=== PATIENT | male | born 1985 | race Caucasian/White ===

== ENCOUNTER 2019-07-12 10:47 | Emergency (ER) | payer OTHER, MEDICAID, SELFPAY ==
[2019-07-12 10:50] VITALS: BP 136/74; PULSE 66; RESP 18; TEMP 35.9; O2SAT 96; BMI 41.8
[2019-07-12] MEDS: ONDANSETRON 4 MG/2 ML INJ IV (11:30)
[2019-07-12] MEDS: SODIUM CHLORIDE 0.9% 1,000 ML 1000 ML IV (11:30)
--- NOTE | 2019-07-12 11:48 | ED_ITS ---
HPI - Headache <Markus KEAGAN Wallis - Last Filed: 07/12/19 21:59> General Chief Complaint: Headache Stated Complaint: migrane,vomiting Time Seen by Provider: 07/12/19 11:45 Mode of arrival: Ambulatory Limitations: no limitations History of Present Illness HPI Narrative: This is a 33-year-old gentleman, nonsmoker, who presents to ED with migraine headache without fever, chills, unusual rash, photosensitivity. Patient reports he has a long history of migraine headache since age 5 and had tried multiple different medications in the past and is under care of Dr. Patrick Fitzgerald, neurologist and headache specialitst. Patient states actually since coming into ED his headache has improved from 7-4 at this time. Patient has onset of headache 3 days ago with worsening symptoms of headache yesterday. This morning patient had severe nausea and had vomited and was unable to tolerate his routine medications along anti nausea medication. Patient denies speech difficulty, vision changes, weakness to his extremity. Reports his headache is similar to his previous migraine headaches. Patient has multiple medication allergies to headache. Patient stays his migraine headache is frequently caused by barometric changes and he is under some stress. Related Data Home Medications Medication Instructions Recorded Confirmed cholecalciferol (vitamin D3) QWEEK #0 03/27/16 magnesium Q DAY #0 03/27/16 naproxen BID #0 03/27/16 promethazine 25 mg PO QID #0 03/27/16 07/12/19 almotriptan malate 12.5 mg PO PRN PRN MDD 25 mg 07/12/19 07/12/19 buspirone 5 mg PO TID PRN 07/12/19 07/12/19 esomeprazole magnesium [Nexium 40 mg PO DAILY 07/12/19 07/12/19 24HR] lithium carbonate 300 mg PO TID 07/12/19 lurasidone [Latuda] 20 mg PO DAILY 07/12/19 07/12/19 pregabalin 100 mg PO DAILY 07/12/19 pregabalin 150 mg PO DAILY 07/12/19 valbenazine [Ingrezza] 80 mg PO DAILY 07/12/19 07/12/19 Previous Rx's Medication Instructions Recorded ondansetron 4 mg PO Q6-8H PRN #7 tab 07/12/19 Allergies Allergy/AdvReac Type Severity Reaction Status Date / Time cyclobenzaprine Allergy Severe Gastrointestinal Verified 07/12/19 11:29 Upset diphenhydramine Allergy Severe Agitated Verified 07/12/19 11:29 ketorolac [From Toradol] Allergy Severe Agitated Verified 07/12/19 11:29 Penicillins Allergy Severe Anaphylaxis Verified 07/12/19 11:29 prochlorperazine Allergy Severe Agitated Verified 07/12/19 11:29 [From Compazine] Sulfa (Sulfonamide Allergy Severe Nausea Verified 07/12/19 11:29 Antibiotics) trimethoprim Allergy Severe Anaphylaxis Verified 07/12/19 11:29 topiramate Allergy Intermediate Seizure Verified 07/12/19 11:29 alcohol [ALCOHOL] Allergy Mild rash/itchy/ Verified 07/12/19 11:29 hot/SOB carbamazepine Allergy Unknown Verified 07/12/19 11:29 Corticosteroids Allergy Unknown Verified 07/12/19 11:29 (Glucocorticoids) gabapentin Allergy Unknown Verified 07/12/19 11:29 dexamethasone Allergy Verified 07/12/19 11:29 morphine AdvReac Severe Nausea Verified 07/12/19 11:29 sumatriptan [From Imitrex] AdvReac Severe Hypertensio Verified 07/12/19 11:29 n acetaminophen AdvReac Intermediate Nausea Verified 07/12/19 11:29 fentanyl AdvReac Intermediate Gastrointestinal Verified 07/12/19 11:29 Upset baclofen AdvReac Shakiness Verified 07/12/19 11:29 metaxalone AdvReac Agitated Verified 07/12/19 11:29 methocarbamol AdvReac Headache Verified 07/12/19 11:29 steroids Allergy Severe swelling Uncoded 07/12/19 11:01 THC Allergy Intermediate head Uncoded 07/12/19 11:01 spins, N/V Review of Systems <KEAGAN Hightower - Last Filed: 07/12/19 21:59> Review of Systems Narrative: General: Denies fever, chills, fatigue, malaise, sweats. HEENT: Denies sinus pain, ear pain, sore throat, difficulty swallowing, dizziness. Respiratory: Denies dyspnea, cough, wheezing, hemoptysis, sputum. Cardiovascular: Denies chest pain, palpitations, orthopnea, edema. Gastrointestinal: Denies nausea, vomiting, abdominal pain, diarrhea, constipation, melena. : Denies dysuria, frequency, incontinence, hematuria, urinary retention. Musculoskeletal: Denies weakness, joint pain or bony pain. Skin: Denies rash, skin lesions, or other. Neurologic: Reports migraine headache. Headache Denies weakness, numbness, change in speech, confusion, seizures, incoordination. Psychiatric: No concerning psychosocial issues. 12-point review of systems is negative except for those stated above. Patient History <KEAGAN Hightower - Last Filed: 07/12/19 21:59> Medical History (Updated 07/12/19 @ 12:32 by KEAGAN Hightower) Migraine (Acute) Surgical History (Updated 11/30/17 @ 06:09 by Conversion Provider) History of third molar tooth extraction History of tonsillectomy Status post discectomy Status post knee surgery Social History Smoking Status: Former smoker Smoking Status: Former smoker alcohol intake frequency: other Substance Use Type: does not use Exam <KEAGAN Hightower - Last Filed: 07/12/19 21:59> Narrative Exam Narrative: GEN: Alert, oriented x 3, well appearing and nourished, and in no acute distress. Head: Normal cephalic, atraumatic. No scalp or temporal tenderness, palpable mass or rash. EYES: Pupils are equal, round, and reactive to light and accommodation. Extraocular muscles are intact bilaterally. There is no subconjunctival hemorrhage, exudate and sclera non-icteric. ENT: Bilateral auditory canals and tympanic membranes clear. Hearing grossly intact. Nose without bleeding, purulent discharge, septal hematoma or deviation. Turbinate without erythema or swelling. Facial sinuses nontender to palpate. Mucous membrane moist, no mucosal lesion. Throat without erythema, tonsillar hypertrophy or exudate. Uvula in midline, airway patent. Neck: Trachea in midline. No JVD, non-tender without lymphadenopathy. No masses or thyroid megaly. Supple, non-tender and no meningeal signs. CARDIAC: Normal regular rate and rhythm without murmurs, gallops, or rubs. No chest wall tenderness. No peripheral edema, cyanosis or pallor. Capillary refill is less than 2 seconds. No carotid bruits. RESPIRATORY: Lungs are cleat to auscultate bilaterally. No cough, wheezes, rales, or rhonchi. No stridor, respiratory distress, increase work of breathing, or accessary muscle used. ABD: Abdomen soft, nontender and non-distended. No guarding or rebound tenderness to palpate. Bowel sounds are normal in all 4 quadrants. There is no palpable masses or organomegaly. EXT: Full painless ROM of all extremities with no loss of sensation, strength, effusion or edema. SKIN: Warm, dry, normal color for patient. No erythema, lesions or rash. BACK: Nontender without deformity or crepitance. No flank tenderness. NEUROLOGICAL: Alert and oriented to place, time and person. No facial droops, dysphasia. CN II-XII intact. Strength and sensation symmetric and intact throughout. Reflexes 2+ throughout. Cerebellar testing normal. PSYCHIATRIC: Good judgement and reason, without hallucinations, abnormal affect or abnormal behaviors during the examination. Patient is not suicidal. Initial Vital Signs Initial Vital Signs: Vital Signs Temperature 96.6 F L 07/12/19 10:50 Pulse Rate 66 07/12/19 10:50 Respiratory Rate 18 07/12/19 10:50 Blood Pressure 136/74 07/12/19 10:50 Pulse Oximetry 96 07/12/19 10:50 <Didi Clarke DO - Last Filed: 07/13/19 07:23> Initial Vital Signs Initial Vital Signs: Vital Signs Temperature 96.6 F L 07/12/19 10:50 Pulse Rate 66 07/12/19 10:50 Respiratory Rate 18 07/12/19 10:50 Blood Pressure 136/74 07/12/19 10:50 Pulse Oximetry 96 07/12/19 10:50 Scores <KEAGAN Hightower - Last Filed: 07/12/19 21:59> GCS Quinter coma scale eye opening: Spontaneous Quinter coma scale verbal response: Orientated Genia coma scale motor response: Obey commands Quinter coma scale total score: 15 NIH Stroke Scale Level of Conciousness: Alert, keenly responsive Ask month/age: Answers both questions correctly. Open/close eyes, close hand: Performs both tasks correctly Best gaze horizontal: Normal Visual mooney: No visual loss Facial palsy: Normal symetrical movement Left arm drift: No drift for full 10 sec Right arm drift: No drift for full 10 sec Left leg drift: No drift for full 10 sec Right leg drift: No drift for full 10 sec Limb ataxia: Absent Sensory on face/arms/legs: Normal, no sensory loss Best language: No aphasia, normal Dysarthria: Normal Extinction or inattention: No abnormality Total NIH Stroke scale score: 0 Course <KEAGAN Hightower - Last Filed: 07/12/19 21:59> Orders Ordered: Discontinued Medications Sodium Chloride (Normal Saline 0.9%) 1,000 mls @ 1,000 mls/hr IV BOLUS ONE Stop: 07/12/19 12:07 Last Infusion: 07/12/19 12:30 Dose: 0 mls/hr Documented by: Admin: 07/12/19 11:30 Dose: 1,000 mls/hr Documented by: BRISEIDA Ondansetron HCl (Zofran) 4 mg IV NOW ONE Stop: 07/12/19 11:09 Last Admin: 07/12/19 11:30 Dose: 4 mg Documented by: BRISEIDA Vital Signs Vital signs: Vital Signs - 8 hr 07/12/19 10:50 Temperature 96.6 F L Pulse Rate 66 Respiratory Rate 18 Blood Pressure 136/74 Pulse Oximetry 96 <Didi Clarke DO - Last Filed: 07/13/19 07:23> Orders Ordered: Discontinued Medications Sodium Chloride (Normal Saline 0.9%) 1,000 mls @ 1,000 mls/hr IV BOLUS ONE Stop: 07/12/19 12:07 Last Infusion: 07/12/19 12:30 Dose: 0 mls/hr Documented by: Admin: 07/12/19 11:30 Dose: 1,000 mls/hr Documented by: BRISEIDA Ondansetron HCl (Zofran) 4 mg IV NOW ONE Stop: 07/12/19 11:09 Last Admin: 07/12/19 11:30 Dose: 4 mg Documented by: BRISEIDA Vital Signs Vital signs: Vital Signs - 8 hr 07/12/19 10:50 Temperature 96.6 F L Pulse Rate 66 Respiratory Rate 18 Blood Pressure 136/74 Pulse Oximetry 96 MDM - Headache <KEAGAN Hightower - Last Filed: 07/12/19 21:59> Differential Diagnosis Differential diagnosis: Likely migraine, headache and other (Stroke) Medical Records Attestation: I reviewed the patient's medical records. Lab Data Attestation: I reviewed the patient's lab results. Labs: Lab Results 07/12/19 Range/Units 12:30 Urine RBC None seen (0-5/HPF) Urine WBC 0-1/hpf (0-5/HPF) Ur Squamous Epith Cells 1-5 /hpf (0-5/HPF) Urine Bacteria None seen (None) Hyaline Casts 0-1/lpf (None) WBC Casts 0-1/lpf (None) Ur Culture Indicated? Cult not indicated Urine Dip Bedside Urine Glucose Negative Bedside Urine Bilirubin - Negative Bedside Urine Ketone - Negative Urine Specific Mcalister 1.025 Bedside Urine Occult Blood - Negative Bedside Urine pH 6.0 Bedside Urine Protein +/- 15 Bedside Urine Urobilinogen - Negative Bedside Urine Nitrite - Negative Bedside Urine Leukocytes - Negative Esterase MDM Narrative Medical decision making narrative: This is a 33-year-old gentleman who presents to ED with long history of migraine headaches since age 5 without constitutional symptoms or meningeal signs. Patient states she was not able to tolerate his medications due to nausea and vomiting for his headache management and routine medications today. Patient NIHS score was 0 and GCS of 15. Patient reports today's headache feels as his normal migraine headaches. Patient has neuro logist that he follows up for headaches. Patient has multiple medications allergies to treat headache. Patient was treated with IV fluid and IV Zofran for nausea and patient reports his headache has improved and is ready to go home. No lab tests or imaging tests has done today. Vital signs has been stable in ED. Patient discharged to home with Zofran ODT and Return precautions were discussed with the patient and verbalized understanding and agrees with the treatment plan. Work note provided to patient. <Didi Clarke, DO - Last Filed: 07/13/19 07:23> Lab Data Labs: Lab Results 07/12/19 Range/Units 12:30 Urine RBC None seen (0-5/HPF) Urine WBC 0-1/hpf (0-5/HPF) Ur Squamous Epith Cells 1-5 /hpf (0-5/HPF) Urine Bacteria None seen (None) Hyaline Casts 0-1/lpf (None) WBC Casts 0-1/lpf (None) Ur Culture Indicated? Cult not indicated Urine Dip Bedside Urine Glucose Negative Bedside Urine Bilirubin - Negative Bedside Urine Ketone - Negative Urine Specific Mcalister 1.025 Bedside Urine Occult Blood - Negative Bedside Urine pH 6.0 Bedside Urine Protein +/- 15 Bedside Urine Urobilinogen - Negative Bedside Urine Nitrite - Negative Bedside Urine Leukocytes - Negative Esterase Discharge Plan Departure Patient Disposition: Home Clinical Impression: Headache, migraine Qualifiers: Migraine type: unspecified Status migrainosus presence: without status migrainosus Intractability: not intractable Qualified Code(s): G43.909 - Migraine, unspecified, not intractable, without status migrainosus Discharge Date/Time: 07/12/19 13:11 Activity Restrictions/Additional Instructions: You have been diagnosed with [migraine headache. You were hydrated with IV fluid and medicated with Zofran for nausea]. What to do: *Take your medications as directed. You have been prescribed with Zofran for nausea and please use it as needed. This is transmitted to [facility]. *Follow up with your primary care provider/neurologist in 2-3 days, call for an appointment. Let them know you were seen in the ED and that we asked you to be seen in follow up. *Return to ED if you have any new, worsening, or concerning symptoms, such as [chest pain, breathing difficulty, unable to tolerate fluids, weakness to her limbs, speech difficulty, double vision, or any acute concerns]. Prescriptions: New ondansetron 4 mg tablet,disintegrating 4 mg PO Q6-8H PRN (Reason: nausea and vomiting) Qty: 7 RF: 0 No Action promethazine 25 MG tablet 25 mg PO QID Qty: 0 RF: 0 cholecalciferol (vitamin D3) 50,000 UNIT capsule QWEEK Qty: 0 RF: 0 naproxen 250 MG tablet BID Qty: 0 RF: 0 magnesium 200 MG tablet Q DAY Qty: 0 RF: 0 buspirone 5 mg tablet 5 mg PO TID PRN (Reason: Anxiety) RF: 0 almotriptan malate 12.5 mg tablet 12.5 mg PO PRN MDD 25 mg PRN (Reason: Migraine Headache) RF: 0 lithium carbonate 300 mg capsule 300 mg PO TID RF: 0 esomeprazole magnesium [Nexium 24HR] 20 mg capsule,delayed release(DR/EC) 40 mg PO DAILY RF: 0 pregabalin 75 mg capsule 150 mg PO DAILY RF: 0 pregabalin 100 mg capsule 100 mg PO DAILY RF: 0 Latuda 20 mg tablet 20 mg PO DAILY RF: 0 Ingrezza 40 mg capsule 80 mg PO DAILY RF: 0 Referrals: Amilcar Nguyen MD [Non-Staff] - Stand Alone Forms: Work Release Note
[2019-07-12 12:30] VITALS: BP 110/81; PULSE 57; RESP 16; TEMP 36.6; O2SAT 98
[2019-07-12 13:08] LABS: Bacteria Urine None Seen; RBC Urine None Seen (0-5/HPF)
[2019-07-12 13:23] LABS: Culture Indicated Urine Cult Not Indicated; Hyaline Casts Urine 0-1/LPF; Squamous Epithelial Cell Urine 1-5 /HPF (0-5/HPF); WBC Urine 0-1/HPF (0-5/HPF); White Blood Cell Casts Urine 0-1/LPF
== END 2019-07-12 13:11 | disposition home or self-care (01) ==
PROVIDERS: Emergency Provider Nurse Practitioner Family
DX: G43.909 Migraine, unspecified, not intractable, without status migrainosus (principal)
CPT/HCPCS: 81003; 81015; 96361; 96374; 99281; 99284; J2405

== ENCOUNTER 2019-09-06 14:03 | Emergency (ER) | payer OTHER, MEDICAID, SELFPAY ==
--- NOTE | 2019-09-06 14:11 | DI.RAD.S_ITS ---
PROCEDURE: XR CHEST 1V INDICATIONS: chest pain TECHNIQUE: One view of the chest was acquired. COMPARISON: None. FINDINGS: Surgical changes and devices: None. Lungs and pleura: Lungs are clear. No pleural effusions or pneumothorax. Mediastinum: Mediastinal contours appear normal. Heart size is normal. Bones and chest wall: No suspicious bony lesions. Overlying soft tissues appear unremarkable. IMPRESSION: No acute cardiopulmonary process is evident. Dictated by: Huy Liu M.D. on 09/06/2019 at 14:15 Approved by: Huy Liu M.D. on 09/06/2019 at 14:16
[2019-09-06 14:20] VITALS: BP 124/91; PULSE 119; RESP 21; TEMP 36.6; O2SAT 99; BMI 41.3
[2019-09-06 14:42] LABS: Add Manual Diff / Slide Review NO; Basophils Absolute Auto 0 /uL (0-100); Basophils Percent Auto 0.3 % (0-2); Eosinophils Absolute Auto 100 /uL (0-450); Eosinophils Percent Auto 0.8 % (2-4); Hematocrit 41.1 % (41-53); Hemoglobin 14.8 g/dL (13.5-17.5); Lymphocytes Absolute Auto 1900 /uL (1100-4500); Lymphocytes Percent Auto 19.7 % (25-40); Mean Corpuscular HGB Conc 36.1 % (30-36); Mean Corpuscular Hemoglobin 31.7 PG (26-34); Mean Corpuscular Volume 87.7 fL (80-100); Monocytes Absolute Auto 400 /uL (0-900); Monocytes Percent Auto 4.7 % (3-14); Neutrophils Absolute Auto 7200 /uL (1500-7000); Neutrophils Percent Auto 74.5 % (50-75); Platelet Count 288 X10^3/uL (150-400); Red Blood Cell Count 4.68 X10^6/uL (4.5-5.9); Red Cell Distribution Width 14.2 % (11.6-14.8); White Blood Cell Count 9.6 X10^3/uL (4.5-11.0)
[2019-09-06 14:48] LABS: INR 1.1 (0.9-1.3); Prothrombin Time 12.5 SECONDS (10.1-12.7)
[2019-09-06 14:51] LABS: PTT Partial Thromboplastin Tim 27 SECONDS (26.4-36.2)
[2019-09-06 14:53] LABS: Alanine Aminotransferase 20 IU/L (<50); Albumin 4.4 g/dL (3.5-5.0); Albumin Globulin Ratio 1.3 (1.0-2.8); Alkaline Phosphatase 64 U/L (38-126); Aspartate Aminotransferase 21 IU/L (17-59); BUN Creatinine Ratio 9.1 (6-22); Bilirubin Total 0.5 mg/dL (0.2-1.3); Blood Urea Nitrogen 10 mg/dL (9-20); Calcium 9.8 mg/dL (8.4-10.2); Carbon Dioxide 17 mmol/L (22-32); Chloride 112 mmol/L (98-107); Creatine Kinase 104 U/L (55-170); Estimated Glomerular Filt Rate > 60.0 mL/min (>60); Globulin 3.3 g/dL (1.7-4.1); Glucose 129 mg/dL (70-100); HEMOLYSIS < 15 (0-50); Lipase 47 U/L (23-300); Potassium 3.4 mmol/L (3.4-5.1); Sodium 143 mmol/L (137-145); Total Protein 7.7 g/dL (6.3-8.2)
[2019-09-06 15:04] LABS: Troponin I < 0.012 ng/mL (0.01-0.034)
[2019-09-06 15:08] LABS: CKMB % Relative Index 0.7 % (1.5-5.0); Creatine Kinase MB 0.73 ng/mL (<2.37)
[2019-09-06 15:38] VITALS: BP 122/65; PULSE 93; RESP 19; O2SAT 95
--- NOTE | 2019-09-06 16:36 | ED.CHESTPAIN ---
HPI - Chest Pain General Chief Complaint: Chest Pain Stated Complaint: POSSIBLE HEART ATTACK Time Seen by Provider: 09/06/19 16:29 Source: patient Mode of arrival: Ambulatory Limitations: no limitations History of Present Illness HPI narrative: This is a 34-year-old male comes to the emergency department with complaint of feeling like he is having a panic attack. He states that it just has not stopped he states he got a from 05/06 o'clock this morning is continued to have symptoms. He describes as feeling like his heart is compressed, he feels like he can't come down. He feels dizzy when he stands. He states this typical symptoms but usually it is not this prolonged or intense. Patient states no syncope. He has had some nausea but no active vomiting. He did take his Zofran sublingually at home and states that he has been told he has vomiting problems or possibly cyclic vomiting. Patient has had normal urination without any decrease or frequency, dysuria urgency. Normal stools. Patient does take lithium for bipolar, he states that his bipolar symptoms are well controlled at this time. He has had some increased anxiety and took his BuSpar sit for 60 mg total today. He also has a history of chronic migraines and fibromyalgia and states he had an L5-S1 fusion for a lumbar pars defect in the past. Patient denies tobacco or alcohol he does take CBD and took an additional THC with that at 8:30 a.m. trying to help his symptoms and states it seemed to make them worse. Related Data Home Medications Medication Instructions Recorded Confirmed cholecalciferol (vitamin D3) QWEEK #0 03/27/16 magnesium Q DAY #0 03/27/16 naproxen BID #0 03/27/16 promethazine 25 mg PO QID #0 03/27/16 07/12/19 almotriptan malate 12.5 mg PO PRN PRN MDD 25 mg 07/12/19 07/12/19 buspirone 5 mg PO TID PRN 07/12/19 07/12/19 esomeprazole magnesium [Nexium 40 mg PO DAILY 07/12/19 07/12/19 24HR] lithium carbonate 300 mg PO TID 07/12/19 lurasidone [Latuda] 20 mg PO DAILY 07/12/19 07/12/19 pregabalin 100 mg PO DAILY 07/12/19 pregabalin 150 mg PO DAILY 07/12/19 valbenazine [Ingrezza] 80 mg PO DAILY 07/12/19 07/12/19 Previous Rx's Medication Instructions Recorded ondansetron 4 mg PO Q6-8H PRN #7 tab 07/12/19 Allergies Allergy/AdvReac Type Severity Reaction Status Date / Time cyclobenzaprine Allergy Severe Gastrointestinal Verified 07/12/19 11:29 Upset diphenhydramine Allergy Severe Agitated Verified 07/12/19 11:29 ketorolac [From Toradol] Allergy Severe Agitated Verified 07/12/19 11:29 Penicillins Allergy Severe Anaphylaxis Verified 07/12/19 11:29 prochlorperazine Allergy Severe Agitated Verified 07/12/19 11:29 [From Compazine] Sulfa (Sulfonamide Allergy Severe Nausea Verified 07/12/19 11:29 Antibiotics) trimethoprim Allergy Severe Anaphylaxis Verified 07/12/19 11:29 topiramate Allergy Intermediate Seizure Verified 07/12/19 11:29 alcohol [ALCOHOL] Allergy Mild rash/itchy/ Verified 07/12/19 11:29 hot/SOB carbamazepine Allergy Unknown Verified 07/12/19 11:29 Corticosteroids Allergy Unknown Verified 07/12/19 11:29 (Glucocorticoids) gabapentin Allergy Unknown Verified 07/12/19 11:29 dexamethasone Allergy Verified 07/12/19 11:29 morphine AdvReac Severe Nausea Verified 07/12/19 11:29 sumatriptan [From Imitrex] AdvReac Severe Hypertensio Verified 07/12/19 11:29 n acetaminophen AdvReac Intermediate Nausea Verified 07/12/19 11:29 fentanyl AdvReac Intermediate Gastrointestinal Verified 07/12/19 11:29 Upset baclofen AdvReac Shakiness Verified 07/12/19 11:29 metaxalone AdvReac Agitated Verified 07/12/19 11:29 methocarbamol AdvReac Headache Verified 07/12/19 11:29 steroids Allergy Severe swelling Uncoded 07/12/19 11:01 THC Allergy Intermediate head Uncoded 07/12/19 11:01 janey, N/V Review of Systems Review of Systems ROS Unobtainable: All systems reviewed & are unremarkable except as noted in HPI and below Patient History Medical History (Updated 09/07/19 @ 01:42 by Terrance Ruiz DO) Chronic pain syndrome (Inactive) Chronic pain syndrome (03/27/16) Former smoker (03/27/16) History of lumbar fusion (03/27/16) Low back pain (Inactive) Lumbar back pain with radiculopathy affecting left lower extremity (03/27/16) Migraine (Acute) Morbid obesity (03/27/16) Morbid obesity with BMI of 40.0-44.9, adult (Inactive) Tobacco abuse (Inactive) Tobacco abuse counseling (Inactive) Surgical History History of third molar tooth extraction History of tonsillectomy Status post discectomy Status post knee surgery Social History Smoking Status: Former smoker Smoking Status: Former smoker alcohol intake frequency: other Substance Use Type: marijuana Exam Narrative Exam Narrative: GEN: well nourished, well appearing obese male, alert and oriented x 3, patient appears to be in mild distress. HEENT: Atraumatic, pupils are equal round reactive to light, extraocular movements are intact, nares are clear. HEART: Regular rate and rhythm without murmur, clicks, rubs. LUNGS:Lungs clear to auscultation, no wheezes, rales, crackles, chest moves symmetrically ABD:bowel sounds normal, soft, non-tender, no guarding, rebound, rigidity, no masses noted, no hepatosplenomegaly :No CVA tenderness MSCL: Non-tender, no muscle atrophy, muscles strength 5/5 upper and lower extremities, full range of motion. NEURO:CN 2-12 intact, sensation normal Initial Vital Signs Initial Vital Signs: Vital Signs Temperature 97.8 F 09/06/19 14:20 Pulse Rate 119 H 09/06/19 14:20 Respiratory Rate 21 09/06/19 14:20 Blood Pressure 124/91 H 09/06/19 14:20 Pulse Oximetry 99 09/06/19 14:20 Scores GCS Genia coma scale eye opening: Spontaneous [place] coma scale verbal response: Orientated Gen[place] coma scale motor response: Obey commands Genia coma scale total score: 15 Course Orders Ordered: Discontinued Medications Sodium Chloride (Normal Saline 0.9%) 1,000 mls @ 1,000 mls/hr IV BOLUS ONE Stop: 09/06/19 17:59 Last Infusion: 09/06/19 18:35 Dose: 0 mls/hr Documented by: Admin: 09/06/19 17:33 Dose: 1,000 mls/hr Documented by: MICHELLE Lorazepam (Ativan) 1 mg PO NOW ONE Stop: 09/06/19 16:57 Last Admin: 09/06/19 17:33 Dose: 1 mg Documented by: MICHELLE Ondansetron HCl (Zofran) 4 mg IV NOW ONE Stop: 09/06/19 17:08 Last Admin: 09/06/19 17:33 Dose: 4 mg Documented by: MICHELLE Vital Signs Vital signs: Vital Signs - 8 hr 09/06/19 14:20 09/06/19 15:38 Temperature 97.8 F Pulse Rate 119 H 93 H Respiratory Rate 21 19 Blood Pressure 124/91 H Blood Pressure [Left Arm] 122/65 Pulse Oximetry 99 95 MDM - Chest Pain Lab Data Attestation: I reviewed the patient's lab results. Result diagrams: 09/06/19 14:33 09/06/19 14:33 Labs: Lab Results 09/06/19 09/06/19 09/06/19 Range/Units 14:33 14:33 14:33 WBC 9.6 (4.5-11.0) X10^3/uL RBC 4.68 (4.5-5.9) X10^6/uL Hgb 14.8 (13.5-17.5) g/dL Hct 41.1 (41-53) % MCV 87.7 (80-100) fL MCH 31.7 (26-34) PG MCHC 36.1 H (30-36) % RDW 14.2 (11.6-14.8) % Plt Count 288 (150-400) X10^3/uL Neut % (Auto) 74.5 (50-75) % Lymph % (Auto) 19.7 L (25-40) % [place] % (Auto) 4.7 (3-14) % Eos % (Auto) 0.8 L (2-4) % Baso % (Auto) 0.3 (0-2) % Neut # (Auto) 7200 H (7679-8147) /uL Lymph # (Auto) 1900 (2938-4799) /uL [place] # (Auto) 400 (0-900) /uL Eos # (Auto) 100 (0-450) /uL Baso # (Auto) 0 (0-100) /uL PT 12.5 (10.1-12.7) SECONDS INR 1.1 (0.9-1.3) APTT 27 (26.4-36.2) SECONDS D-Dimer (<230) ng/mL Sodium 143 (137-145) mmol/L Potassium 3.4 (3.4-5.1) mmol/L Chloride 112 H (98-107) mmol/L Carbon Dioxide 17 L (22-32) mmol/L BUN 10 (9-20) mg/dL Creatinine 1.10 (0.66-1.25) mg/dL Estimated GFR > 60.0 (>60) mL/min BUN/Creatinine Ratio 9.1 (6-22) Glucose 129 H (70-100) mg/dL Calcium 9.8 (8.4-10.2) mg/dL Total Bilirubin 0.5 (0.2-1.3) mg/dL AST 21 (17-59) IU/L ALT 20 (<50) IU/L Alkaline Phosphatase 64 (38-126) U/L Total Creatine Kinase 104 (55-170) U/L CK-MB (CK-2) 0.73 (<2.37) ng/mL CK-MB (CK-2) Rel Index 0.7 L (1.5-5.0) % Troponin I < 0.012 (0.01-0.034) ng/mL Total Protein 7.7 (6.3-8.2) g/dL Albumin 4.4 (3.5-5.0) g/dL Globulin 3.3 (1.7-4.1) g/dL Albumin/Globulin Ratio 1.3 (1.0-2.8) Lipase 47 (23-300) U/L U Opiates 300ng/mL cut (Negative) Ur Oxycodone Screen (Negative) Urine Methadone Screen (Negative) Ur Barbiturates Screen (Negative) U Tricyclic Antidepress (Negative) Ur Phencyclidine Scrn (Negative) Ur Amphetamines Screen (Negative) U Methamphetamines Scrn (Negative) Ur MDMA Scrn (Ecstasy) (Negative) U Benzodiazepines Scrn (Negative) [place] (0.6-1.2) mmol/L Urine Cocaine Screen (Negative) U Marijuana (THC) Screen (Negative) 09/06/19 09/06/19 09/06/19 Range/Units 14:33 14:33 17:01 WBC (4.5-11.0) X10^3/uL RBC (4.5-5.9) X10^6/uL Hgb (13.5-17.5) g/dL Hct (41-53) % MCV (80-100) fL MCH (26-34) PG MCHC (30-36) % RDW (11.6-14.8) % Plt Count (150-400) X10^3/uL Neut % (Auto) (50-75) % Lymph % (Auto) (25-40) % [place] % (Auto) (3-14) % Eos % (Auto) (2-4) % Baso % (Auto) (0-2) % Neut # (Auto) (6497-3897) /uL Lymph # (Auto) (4351-8603) /uL [place] # (Auto) (0-900) /uL Eos # (Auto) (0-450) /uL Baso # (Auto) (0-100) /uL PT (10.1-12.7) SECONDS INR (0.9-1.3) APTT (26.4-36.2) SECONDS D-Dimer < 200 (<230) ng/mL Sodium (137-145) mmol/L Potassium (3.4-5.1) mmol/L Chloride (98-107) mmol/L Carbon Dioxide (22-32) mmol/L BUN (9-20) mg/dL Creatinine (0.66-1.25) mg/dL Estimated GFR (>60) mL/min BUN/Creatinine Ratio (6-22) Glucose (70-100) mg/dL Calcium (8.4-10.2) mg/dL Total Bilirubin (0.2-1.3) mg/dL AST (17-59) IU/L ALT (<50) IU/L Alkaline Phosphatase (38-126) U/L Total Creatine Kinase (55-170) U/L CK-MB (CK-2) (<2.37) ng/mL CK-MB (CK-2) Rel Index (1.5-5.0) % Troponin I (0.01-0.034) ng/mL Total Protein (6.3-8.2) g/dL Albumin (3.5-5.0) g/dL Globulin (1.7-4.1) g/dL Albumin/Globulin Ratio (1.0-2.8) Lipase (23-300) U/L U Opiates 300ng/mL cut Negative (Negative) Ur Oxycodone Screen Negative (Negative) Urine Methadone Screen Negative (Negative) Ur Barbiturates Screen Negative (Negative) U Tricyclic Antidepress Negative (Negative) Ur Phencyclidine Scrn Negative (Negative) Ur Amphetamines Screen Negative (Negative) U Methamphetamines Scrn Negative (Negative) Ur MDMA Scrn (Ecstasy) Negative (Negative) U Benzodiazepines Scrn Negative (Negative) [place] 0.6 (0.6-1.2) mmol/L Urine Cocaine Screen Negative (Negative) U Marijuana (THC) Screen Positive H (Negative) Imaging Data Chest x-ray: Radiologist's Impression: Roberto Thakkar M 1985 [place] [address] XRay Report Signed Patient: Roberto Thakkar MMR#: [id number] : 1985Acct:[id number] Age/Sex: 34 / MDate of Service: 09/06/19 Loc: ED Accession Number: [id number] Procedure: XR chest 1V Ordering Provider: Didi Clarke D.O. PROCEDURE: XR CHEST 1V INDICATIONS: chest pain TECHNIQUE: One view of the chest was acquired. COMPARISON: None. FINDINGS: Surgical changes and devices: None. Lungs and pleura: Lungs are clear. No pleural effusions or pneumothorax. Mediastinum: Mediastinal contours appear normal. Heart size is normal. Bones and chest wall: No suspicious bony lesions. Overlying soft tissues appear unremarkable. IMPRESSION: No acute cardiopulmonary process is evident. Dictated by: Huy Liu M.D. on 09/06/2019 at 14:15 Approved by: Huy Liu M.D. on 09/06/2019 at 14:16 ECG Data Attestation: I personally reviewed and interpreted this ECG as follows: Prior ECG tracings: not available for review Interpretation: Sinus tachycardia rate of 111, P are 158 QRS of 102 and QTC [address] No [address] elevation depression appreciated. MDM Narrative Medical decision making narrative: Patient comes in with what he describes as an anxiety attack and his typical symptoms. He also has some mild nausea and is developing a little bit of a migraine. Patient does have a psychiatric history he is on lithium but denies any suicidal ideation or intent homicidal ideation or tent he feels like his bipolar is well controlled but he does have chronic issues with anxiety. He also took his normal CBD in addition to THC today which may exacerbated his symptoms although he states his symptoms had started several hours before he took this. Labs including CBC, CMP show a low CO2, no clear signs of infection. Patient's troponin and D-dimer are both negative and patient's greater than 6 hours from onset with no EKG changes which makes my suspicion for a cardiac cause less likely. His lithium level is not elevated today. He did take an extra dose of BuSpar which may have also contributed to his symptoms. Discussed with patient would like for him to follow-up with his primary care for re-evaluations he was given some fluids as well as Zofran and a dose of Ativan which he found mildly helpful. Discharge Plan Departure Patient Disposition: Home Clinical Impression: Anxiety attack Discharge Date/Time: 09/06/19 20:54 Activity Restrictions/Additional Instructions: Follow-up with your physician in the next several days for recheck. You may continue home medications as prescribed. Marijuana or THC can sometimes exacerbate anxiety, it can also cause as hyperemesis or in some patients increased vomiting. Return for fevers greater 100.4 F, rapidly worsening symptoms, severe headaches, altered mental status, persistent vomiting, black or bloody stools, changing chest pain shortness of breath, if you and feel unsafe or suicidal or having any homicidal thoughts, swelling in your lower extremities other new or concerning symptoms. Prescriptions: No Action promethazine 25 MG tablet 25 mg PO QID Qty: 0 RF: 0 cholecalciferol (vitamin D3) 50,000 UNIT capsule QWEEK Qty: 0 RF: 0 naproxen 250 MG tablet BID Qty: 0 RF: 0 magnesium 200 MG tablet Q DAY Qty: 0 RF: 0 buspirone 5 mg tablet 5 mg PO TID PRN (Reason: Anxiety) RF: 0 almotriptan malate 12.5 mg tablet 12.5 mg PO PRN MDD 25 mg PRN (Reason: Migraine Headache) RF: 0 lithium carbonate 300 mg capsule 300 mg PO TID RF: 0 esomeprazole magnesium [Nexium 24HR] 20 mg capsule,delayed release(DR/EC) 40 mg PO DAILY RF: 0 pregabalin 75 mg capsule 150 mg PO DAILY RF: 0 pregabalin 100 mg capsule 100 mg PO DAILY RF: 0 Latuda 20 mg tablet 20 mg PO DAILY RF: 0 Ingrezza 40 mg capsule 80 mg PO DAILY RF: 0 ondansetron 4 mg tablet,disintegrating 4 mg PO Q6-8H PRN (Reason: nausea and vomiting) Qty: 7 RF: 0
[2019-09-06 16:51] LABS: D Dimer < 200 ng/mL (<230)
[2019-09-06 17:07] LABS: Lithium 0.6 mmol/L (0.6-1.2)
[2019-09-06 17:20] LABS: UR Morphine/Opiate cutoff 300 Negative (Negative); Ur Creatinine Normal (Normal); Ur Specific Gravity Normal (Normal); Urine Amphetamines Negative (Negative); Urine Barbiturates Negative (Negative); Urine Benzodiazepines Negative (Negative); Urine Cocaine Negative (Negative); Urine MDMA Negative (Negative); Urine Methadone Negative (Negative); Urine Methamphetamines Negative (Negative); Urine Oxycodone Negative (Negative); Urine Phencyclidine Negative (Negative); Urine Tetrahydrocannabinol Positive (Negative); Urine Tricyclic Antidepressant Negative (Negative); Urine pH Normal (Normal)
[2019-09-06] MEDS: SODIUM CHLORIDE 0.9% 1,000 ML 1000 ML IV (17:33)
[2019-09-06] MEDS: LORazepam 0.5 MG TABLET 1 MG PO (17:33)
[2019-09-06] MEDS: ONDANSETRON 4 MG/2 ML INJ IV (17:33)
[2019-09-06 18:50] VITALS: BP 122/65; PULSE 90; RESP 16; O2SAT 98
== END 2019-09-06 20:54 | disposition home or self-care (01) ==
PROVIDERS: Emergency Provider Emergency Medicine
DX: F41.9 Anxiety disorder, unspecified (principal); R07.9 Chest pain, unspecified
CPT/HCPCS: 36415; 71045; 80053; 80178; 80305; 82550; 82553; 83690; 84484; 85025; 85379; 85610; 85730; 93005; J2405

== ENCOUNTER 2019-09-06 23:55 | Emergency (ER) | payer OTHER, MEDICAID, SELFPAY ==
[2019-09-07 00:02] VITALS: BP 150/98; PULSE 96; RESP 20; TEMP 36.6; O2SAT 97
--- NOTE | 2019-09-07 00:15 | ED.ANXIETY ---
HPI - Anxiety General Chief Complaint: Anxiety Stated Complaint: panic attack/was here earlier today Time Seen by Provider: 09/06/19 23:57 Source: patient Mode of arrival: Ambulatory Limitations: no limitations History of Present Illness HPI narrative: 34-year-old male with a history of bipolar and anxiety was seen here in the emergency department several hours ago for a panic attack. Was given Ativan. He states that it did improve his symptoms somewhat. Was discharged home. When he returned home he states the symptoms worsened so he came back to the emergency department. Related Data Home Medications Medication Instructions Recorded Confirmed cholecalciferol (vitamin D3) QWEEK #0 03/27/16 magnesium Q DAY #0 03/27/16 naproxen BID #0 03/27/16 promethazine 25 mg PO QID #0 03/27/16 07/12/19 almotriptan malate 12.5 mg PO PRN PRN MDD 25 mg 07/12/19 07/12/19 buspirone 5 mg PO TID PRN 07/12/19 07/12/19 esomeprazole magnesium [Nexium 40 mg PO DAILY 07/12/19 07/12/19 24HR] lithium carbonate 300 mg PO TID 07/12/19 lurasidone [Latuda] 20 mg PO DAILY 07/12/19 07/12/19 pregabalin 100 mg PO DAILY 07/12/19 pregabalin 150 mg PO DAILY 07/12/19 valbenazine [Ingrezza] 80 mg PO DAILY 07/12/19 07/12/19 Previous Rx's Medication Instructions Recorded ondansetron 4 mg PO Q6-8H PRN #7 tab 07/12/19 Allergies Allergy/AdvReac Type Severity Reaction Status Date / Time cyclobenzaprine Allergy Severe Gastrointestinal Verified 07/12/19 11:29 Upset diphenhydramine Allergy Severe Agitated Verified 07/12/19 11:29 ketorolac [From Toradol] Allergy Severe Agitated Verified 07/12/19 11:29 Penicillins Allergy Severe Anaphylaxis Verified 07/12/19 11:29 prochlorperazine Allergy Severe Agitated Verified 07/12/19 11:29 [From Compazine] Sulfa (Sulfonamide Allergy Severe Nausea Verified 07/12/19 11:29 Antibiotics) trimethoprim Allergy Severe Anaphylaxis Verified 07/12/19 11:29 topiramate Allergy Intermediate Seizure Verified 07/12/19 11:29 alcohol [ALCOHOL] Allergy Mild rash/itchy/ Verified 07/12/19 11:29 hot/SOB carbamazepine Allergy Unknown Verified 07/12/19 11:29 Corticosteroids Allergy Unknown Verified 07/12/19 11:29 (Glucocorticoids) gabapentin Allergy Unknown Verified 07/12/19 11:29 dexamethasone Allergy Verified 07/12/19 11:29 morphine AdvReac Severe Nausea Verified 07/12/19 11:29 sumatriptan [From Imitrex] AdvReac Severe Hypertensio Verified 07/12/19 11:29 n acetaminophen AdvReac Intermediate Nausea Verified 07/12/19 11:29 fentanyl AdvReac Intermediate Gastrointestinal Verified 07/12/19 11:29 Upset baclofen AdvReac Shakiness Verified 07/12/19 11:29 metaxalone AdvReac Agitated Verified 07/12/19 11:29 methocarbamol AdvReac Headache Verified 07/12/19 11:29 steroids Allergy Severe swelling Uncoded 07/12/19 11:01 THC Allergy Intermediate head Uncoded 07/12/19 11:01 spins, N/V Review of Systems Constitutional Constitutional: Denies fever(s) and Denies headache(s) ENT Ears, Nose, Mouth, and Throat: Denies headache(s) Cardiovascular Cardiovascular: Reports chest pain and Denies dyspnea Respiratory Respiratory: Denies dyspnea Gastrointestinal Gastrointestinal: Denies abdominal pain Musculoskeletal Musculoskeletal: Reports myalgias and Reports arthralgias Comments: ?Hurts all over ? Integumentary/Breasts Skin/Breast: Denies rash Neurologic Neurologic: Reports behavioral changes and Denies headache(s) Psychiatric Psychiatric: Reports anxiety, Reports behavioral changes, Denies depression, Reports panic attacks and Denies suicidal ideation Hematologic/Lymphatic Hematologic/Lymphatic: Denies easy bleeding and Denies easy bruising Patient History Medical History (Updated 09/07/19 @ 01:42 by Terrance Ruiz DO) Chronic pain syndrome (Inactive) Chronic pain syndrome (03/27/16) Former smoker (03/27/16) History of lumbar fusion (03/27/16) Low back pain (Inactive) Lumbar back pain with radiculopathy affecting left lower extremity (03/27/16) Migraine (Acute) Morbid obesity (03/27/16) Morbid obesity with BMI of 40.0-44.9, adult (Inactive) Tobacco abuse (Inactive) Tobacco abuse counseling (Inactive) Surgical History History of third molar tooth extraction History of tonsillectomy Status post discectomy Status post knee surgery Social History Smoking Status: Former smoker Smoking Status: Former smoker alcohol intake frequency: other Substance Use Type: marijuana Exam Initial Vital Signs Initial Vital Signs: Vital Signs Temperature 98 F 09/07/19 00:02 Pulse Rate 96 H 09/07/19 00:02 Respiratory Rate 20 09/07/19 00:02 Blood Pressure 150/98 H 09/07/19 00:02 Pulse Oximetry 97 09/07/19 00:02 Const Limitations: mental status not altered HENMT Head: normal to inspection and normocephalic Resp Effort & Inspection: normal respiratory effort Cardio Rate: regular rate Skin Lesions: no lesions Rashes: no rashes Neuro General: alert and awake Cognition: normal cognition Speech: speech normal Psych Appearance: well kempt Speech and Movement: restless Mood: anxious mood Affect: animated Attitude: cooperative Thought Content: suicidality Scores GCS [place] coma scale eye opening: Spontaneous [place] coma scale verbal response: Orientated [place] coma scale motor response: Obey commands [place] coma scale total score: 15 Course Orders Ordered: Discontinued Medications Clonidine HCl (Catapres-Tts 1) 0.1 mg TOP NOW ONE Stop: 09/07/19 03:30 Last Admin: 09/07/19 03:53 Dose: 0.1 mg Documented by: PARESH Haloperidol (Haldol) 5 mg PO NOW ONE Stop: 09/07/19 02:36 Last Admin: 09/07/19 02:50 Dose: Not Given Documented by: PARESH Haloperidol (Haldol) 5 mg IM NOW ONE Stop: 09/07/19 02:39 Last Admin: 09/07/19 02:50 Dose: 5 mg Documented by: PARESH Lorazepam (Ativan) 2 mg PO NOW ONE Stop: 09/07/19 01:20 Last Admin: 09/07/19 01:37 Dose: 2 mg Documented by: PRIMO Olanzapine (Zyprexa) 10 mg PO NOW ONE Stop: 09/07/19 00:26 Last Admin: 09/07/19 00:39 Dose: Not Given Documented by: PARESH Olanzapine (Zyprexa Zydis) 10 mg PO NOW ONE Stop: 09/07/19 00:32 Last Admin: 09/07/19 00:39 Dose: 10 mg Documented by: PARESH Vital Signs Vital signs: Vital Signs - 8 hr 09/07/19 00:02 09/07/19 02:35 09/07/19 04:00 Temperature 98 F Pulse Rate 96 H 80 84 Respiratory Rate 20 18 18 Blood Pressure 150/98 H Blood Pressure [Right Arm] 135/93 H 139/95 H Pulse Oximetry 97 97 97 MDM - Anxiety MDM Narrative Medical decision making narrative: Not suicidal. Was given multiple different medications. After he received each of them he did sleep for short period of time but then woke up stating that he was still having panic attack. That unfortunately there was not much more we could do for him at in the emergency department. He was allowed to sleep in the ER for a short period of time. Patient seemed to think that potentially he was withdrawing from his opioid pain medication. He states that his last dose was more than a week ago. Informed him that he needed to contact his primary doctor for a follow-up. Discharge Plan Departure Patient Disposition: Home Clinical Impression: Anxiety attack Instructions: Anxiety and Panic Attacks (Alternative Therapy) Activity Restrictions/Additional Instructions: Continue all of your medications as directed. Recommend that later today you contact your primary provider and/or your mental health provider for a follow-up. Return to the emergency department for any new or worsening symptoms Prescriptions: No Action promethazine 25 MG tablet 25 mg PO QID Qty: 0 RF: 0 cholecalciferol (vitamin D3) 50,000 UNIT capsule QWEEK Qty: 0 RF: 0 naproxen 250 MG tablet BID Qty: 0 RF: 0 magnesium 200 MG tablet Q DAY Qty: 0 RF: 0 buspirone 5 mg tablet 5 mg PO TID PRN (Reason: Anxiety) RF: 0 almotriptan malate 12.5 mg tablet 12.5 mg PO PRN MDD 25 mg PRN (Reason: Migraine Headache) RF: 0 lithium carbonate 300 mg capsule 300 mg PO TID RF: 0 esomeprazole magnesium [Nexium 24HR] 20 mg capsule,delayed release(DR/EC) 40 mg PO DAILY RF: 0 pregabalin 75 mg capsule 150 mg PO DAILY RF: 0 pregabalin 100 mg capsule 100 mg PO DAILY RF: 0 Latuda 20 mg tablet 20 mg PO DAILY RF: 0 Ingrezza 40 mg capsule 80 mg PO DAILY RF: 0 ondansetron 4 mg tablet,disintegrating 4 mg PO Q6-8H PRN (Reason: nausea and vomiting) Qty: 7 RF: 0
[2019-09-07] MEDS: OLANZapine ODT 10 MG TAB PO (00:39)
[2019-09-07] MEDS: LORazepam 0.5 MG TABLET 2 MG PO (01:37)
[2019-09-07 02:35] VITALS: BP 135/93; PULSE 80; RESP 18; O2SAT 97
[2019-09-07] MEDS: HALOPERIDOL 5 MG/ML VIAL IM (02:50)
[2019-09-07] MEDS: cloNIDine TTS 0.1 MG PATCH TOP (03:53)
[2019-09-07 04:00] VITALS: BP 139/95; PULSE 84; RESP 18; O2SAT 97
[2019-09-07 06:23] VITALS: BP 140/96; PULSE 84; RESP 18; O2SAT 98
== END 2019-09-07 06:24 | disposition home or self-care (01) ==
PROVIDERS: Emergency Provider Emergency Medicine
DX: F41.0 Panic disorder [episodic paroxysmal anxiety] (principal); R07.9 Chest pain, unspecified
CPT/HCPCS: 36415; 71045; 80053; 80178; 80305; 82550; 82553; 83690; 84484; 85025; 85379; 85610; 85730; 93005; 96361; 96372; 96374; 99283; 99284; 99285; J1630; J2405

== ENCOUNTER → 2021-06-02 07:11 | Outpatient (CLI) | payer OTHER, MEDICAID, SELFPAY ==
[2021-06-02 07:45] LABS: COVID19 -Nasal RAPID Negative (Negative)
== END ==
PROVIDERS: Visit Provider Nurse Practitioner Family
DX: Z20.822 Contact with and (suspected) exposure to COVID-19 (principal); J02.9 Acute pharyngitis, unspecified; R09.89 Other specified symptoms and signs involving the circulatory and respiratory systems; R51.9 Headache, unspecified
CPT/HCPCS: 87635

== ENCOUNTER 2021-09-03 18:56 | Emergency (ER) | payer OTHER, MEDICAID, SELFPAY ==
[2021-09-03 19:10] VITALS: BP 182/108; PULSE 102; RESP 24; TEMP 36.3; O2SAT 100
[2021-09-03 19:31] VITALS: BP 184/94; PULSE 84; O2SAT 97
--- NOTE | 2021-09-03 20:09 | ED.NAVMDI ---
HPI - Nausea/Vomiting/Diarrhea General Chief complaint: Toxicology Problem Stated complaint: withdrawling from opiates Time Seen by Provider: 09/03/21 19:39 Source: patient Mode of arrival: Ambulatory History of Present Illness HPI Narrative: 35-year-old male former smoker with chronic pain and GERD presents with a chief complaint of symptoms consistent with opiate withdrawal. He has been managed by his primary care doctor and maxed out on 120 MME/daily for his back pain. He takes Oxycontin ER 20mg q12 (last dose last night at 1800) and Oxocodone 5mg PO q6 (last dose Wednesday). He admits that he has been taking a bit more than he had been prescribed and ran out a few days before his prescription could be filled. He presents this evening with a chief complaint of some agitation and anxiety, mild nausea and a few loose stools. He denies chest pain or shortness of breath. He denies any fever but has chills. He denies abdominal pain. He denies use of other substances such as alcohol or any illicit drugs. Related Data Home Medications Medication Instructions Recorded Confirmed cholecalciferol (vitamin D3) 1,250 QWEEK #0 03/27/16 06/02/21 mcg (50,000 unit) capsule magnesium 200 mg tablet Q DAY #0 03/27/16 06/02/21 naproxen 250 mg tablet BID #0 03/27/16 06/02/21 promethazine 25 mg tablet 25 mg PO QID #0 03/27/16 06/02/21 almotriptan malate 12.5 mg tablet 12.5 mg PO PRN PRN MDD 25 mg 07/12/19 06/02/21 buspirone 5 mg tablet 5 mg PO TID PRN 07/12/19 06/02/21 esomeprazole magnesium 20 mg 40 mg PO DAILY 07/12/19 06/02/21 capsule,delayed release (Nexium 24HR) lithium carbonate 300 mg capsule 300 mg PO TID 07/12/19 06/02/21 pregabalin 100 mg capsule 100 mg PO DAILY 07/12/19 06/02/21 pregabalin 75 mg capsule 150 mg PO DAILY 07/12/19 06/02/21 valbenazine 40 mg capsule 80 mg PO DAILY 07/12/19 06/02/21 (Ingrezza) lurasidone 60 mg tablet (Latuda) 60 mg PO DAILY 09/03/21 09/03/21 oxycodone 10 mg tablet 10 mg PO Q6HR PRN 09/03/21 09/03/21 oxycodone 20 mg tablet,crush 20 mg PO BID 09/03/21 09/03/21 resistant,extended release 12 hr (OxyContin) Previous Rx's Medication Instructions Recorded ondansetron 4 mg disintegrating 4 mg PO Q6-8H PRN #7 tab 07/12/19 tablet clonidine HCl 0.1 mg tablet 0.1 mg PO TID PRN #20 tab 09/03/21 Allergies Allergy/AdvReac Type Severity Reaction Status Date / Time cyclobenzaprine Allergy Severe Gastrointestinal Verified 09/03/21 19:20 Upset diphenhydramine Allergy Severe Agitated Verified 09/03/21 19:20 ketorolac [From Toradol] Allergy Severe Agitated Verified 09/03/21 19:20 Penicillins Allergy Severe Anaphylaxis Verified 09/03/21 19:20 prochlorperazine Allergy Severe Agitated Verified 09/03/21 19:20 [From Compazine] Sulfa (Sulfonamide Allergy Severe Nausea Verified 09/03/21 19:20 Antibiotics) trimethoprim Allergy Severe Anaphylaxis Verified 09/03/21 19:20 topiramate Allergy Intermediate Seizure Verified 09/03/21 19:20 alcohol [ALCOHOL] Allergy Mild rash/itchy/ Verified 09/03/21 19:20 hot/SOB carbamazepine Allergy Unknown Verified 09/03/21 19:20 Corticosteroids Allergy Unknown Verified 09/03/21 19:20 (Glucocorticoids) gabapentin Allergy Unknown Verified 09/03/21 19:20 dexamethasone Allergy Verified 09/03/21 19:20 morphine AdvReac Severe Nausea Verified 09/03/21 19:20 sumatriptan [From Imitrex] AdvReac Severe Hypertensio Verified 09/03/21 19:20 n acetaminophen AdvReac Intermediate Nausea Verified 09/03/21 19:20 fentanyl AdvReac Intermediate Gastrointestinal Verified 09/03/21 19:20 Upset baclofen AdvReac Shakiness Verified 09/03/21 19:20 metaxalone AdvReac Agitated Verified 09/03/21 19:20 methocarbamol AdvReac Headache Verified 09/03/21 19:20 steroids Allergy Severe swelling Uncoded 06/02/21 07:20 THC Allergy Intermediate head Uncoded 06/02/21 07:20 spins, N/V Review of Systems Review of Systems Narrative: GENERAL: Denies chills, fatigue, malaise, fever, sweats. HEENT: Denies sinus pain, ear pain, sore throat, difficulty swallowing, dizziness. RESPIRATORY: Denies dyspnea, cough, wheezing, hemoptysis, sputum. CARDIOVASCULAR: Denies chest pain, palpitations, orthopnea, edema, GASTROINTESTINAL: Denies nausea, vomiting, abdominal pain, diarrhea, constipation, melena. : Denies dysuria, frequency, incontinence, hematuria, urinary retention. MUSCULOSKELETAL: denies weakness, joint pain, or bony pain SKIN: Denies rash, skin lesions, or other NEUROLOGIC: Denies weakness, headache, numbness, change in speech, confusion, seizures, incoordination. PSYCHIATRIC: No concerning psychosocial issues. 12 point review of systems is negative except for those stated above Patient History Medical History (Updated 09/03/21 @ 23:04 by Osvaldo Solano DO) Chronic pain syndrome Chronic pain syndrome (03/27/16) Former smoker (03/27/16) History of lumbar fusion (03/27/16) Low back pain Lumbar back pain with radiculopathy affecting left lower extremity (03/27/16) Migraine Morbid obesity (03/27/16) Morbid obesity with BMI of 40.0-44.9, adult Tobacco abuse Tobacco abuse counseling Surgical History History of third molar tooth extraction History of tonsillectomy Status post discectomy Status post knee surgery Social History Smoking Status: Former smoker Smoking Status: Former smoker alcohol intake frequency: other Substance Use Type: marijuana Exam Initial Vital Signs Initial Vital Signs: Vital Signs Temperature 97.4 F L 09/03/21 19:10 Pulse Rate 102 H 09/03/21 19:10 Respiratory Rate 24 09/03/21 19:10 Blood Pressure 182/108 H 09/03/21 19:10 Pulse Oximetry 100 09/03/21 19:10 Course Course Course Narrative: COWS Score for Opiate Withdrawal from [employer] on 09/03/2021 All calculations should be rechecked by clinician prior to use RESULT SUMMARY: 9 points Mild withdrawal INPUTS: Resting Pulse Rate (BPM) ?> 1 = 81-100 Sweating ?> 2 = Flushed or observable moistness on face Restlessness observation during assessment ?> 3 = Frequent shifting or extraneous movements of legs/arms Pupil size ?> 0 = Pupils pinned or normal size for room light Bone or joint aches ?> 0 = Not present Runny nose or tearing ?> 0 = Not present GI Upset ?> 2 = Nausea or loose stool Tremor observation of outstretched hands ?> 0 = No tremor Yawning observation during assessment ?> 0 = No yawning Anxiety or irritability ?> 1 = Patient reports increasing irritability or anxiousness Gooseflesh skin ?> 0 = Skin is smooth Orders Ordered: Discontinued Medications Buprenorphine/Naloxone (Buprenorphine/Naloxone 8mg/2mg 1 Tab) 1 tab SL NOW ONE Stop: 09/03/21 20:16 Last Admin: 09/03/21 20:30 Dose: 1 tab Documented by: JANA Buprenorphine/Naloxone (Buprenorphine/Naloxone 8mg/2mg 1 Tab) 1 tab SL NOW ONE Stop: 09/03/21 21:49 Last Admin: 09/03/21 21:52 Dose: 1 tab Documented by: JANA Clonidine HCl (Clonidine Tts 0.1 Mg Patch) 0.1 mg TOP NOW ONE Stop: 09/03/21 20:13 Last Admin: 09/03/21 20:29 Dose: 0.1 mg Documented by: JANA Naloxone HCl (Naloxone 4 Mg Nasal [place]) 4 mg MISC SEEINSTR ONE Stop: 09/03/21 20:53 Last Admin: 09/03/21 21:11 Dose: 4 mg Documented by: JANA Ondansetron HCl (Ondansetron 4 Mg Odt) 4 mg SL NOW ONE Stop: 09/03/21 20:13 Last Admin: 09/03/21 20:30 Dose: 4 mg Documented by: JANA Ondansetron HCl (Ondansetron 4 Mg Odt Prepack) 1 bottle MISC SEEINSTR ONE Stop: 09/03/21 20:53 Last Admin: 09/03/21 21:10 Dose: 1 bottle Documented by: JANA Vital Signs Vital signs: Vital Signs - 8 hr 09/03/21 20:40 09/03/21 21:39 09/03/21 22:51 Pulse Rate 86 86 80 Respiratory Rate 20 18 Blood Pressure 185/118 H 193/116 H 179/100 H Pulse Oximetry 96 98 98 MDM - Nausea/Vomiting/Diarrhea Imaging Data Chest x-ray: Radiologist's Impression: Launch?[address] [address] XRay Report Signed Patient: Roberto Thakkar MR#: [id number] : 1985 Acct:[id number] Age/Sex: 34 / M Date of Service: 09/06/19 Loc: ED Accession Number: [id number] ?? Procedure: XR chest 1V Ordering Provider: Didi Clarke D.O. PROCEDURE:? XR CHEST 1V ? INDICATIONS:? chest pain ? TECHNIQUE:? One view of the chest was acquired.? ? COMPARISON:? None. ? FINDINGS:? ? Surgical changes and devices:? None.? ? Lungs and pleura:? Lungs are clear.? No pleural effusions or pneumothorax.? ? Mediastinum:? Mediastinal contours appear normal.? Heart size is normal.? ? Bones and chest wall:? No suspicious bony lesions.? Overlying soft tissues appear unremarkable.? ? IMPRESSION: No acute cardiopulmonary process is evident. ? ? ? Dictated by: Huy Liu M.D. on 09/06/2019 at 14:15 ? ? Approved by: Huy Liu M.D. on 09/06/2019 at 14:16 ? ?? [facility] Narrative Medical decision making narrative: Patient presents with mild to moderate opioid withdrawal symptoms. He had been taking 120 MMEs/daily and has been out for just over 26 hours. He had been on buprenorphine in the past. We discussed possible approaches and agreed this was an appropriate approach. He felt minimal improvement after the 1st 8 mg and given his history of exposure to this medication we gave the 2nd. He had a significant improvement and was observed for 1 more hour. He was sent with the Catapres patch on, a short course of oral Catapres to be used as needed, this is consistent with prior withdrawal scenarios for him. Additionally, he was given a Narcan prepack. He will follow up with his doctor tomorrow to discuss long-term plan. He has been given return precautions and questions have been answered to his apparent satisfaction Discharge Plan Departure Patient Disposition: Home Clinical Impression: Opioid withdrawal without use disorder Instructions: DI for Prescription Opioid Use, Naloxone for Opiate Overdose - [facility] Activity Restrictions/Additional Instructions: *You have been diagnosed with [opioid withdrawal] *What to do: *Please continue to take your regular medications as directed. [x ] New medication prescriptions sent to your pharmacy: [[facility] ] [ ] New medication written as a paper prescription [ ] No new medications given *Please follow up with your primary care provider in 2-3 days, call for an appointment. Let them know you were seen in the Emergency Department and that we ask that you be seen in follow up. We will electronically transmit a record of today's note if your PCP is in our system *If you do not have a primary care provider please contact the [facility] Resource line at [phone]. They will ask some questions about your medical history and help get you set up with a doctor in the community. *Return to Emergency Department if you should have any new, worsening or concerning symptoms, such as [fever greater than 101 F, shaking chills, worsening pain, persistent vomiting or other bothersome symptoms] Prescriptions: New clonidine HCl 0.1 mg tablet 0.1 mg PO TID PRN (Reason: alcohol withdrawal) Qty: 20 0RF No Action promethazine 25 MG tablet 25 mg PO QID Qty: 0 0RF cholecalciferol (vitamin D3) 50,000 UNIT capsule QWEEK Qty: 0 0RF naproxen 250 MG tablet BID Qty: 0 0RF magnesium 200 MG tablet Q DAY Qty: 0 0RF buspirone 5 mg tablet 5 mg PO TID PRN (Reason: Anxiety) 0RF almotriptan malate 12.5 mg tablet 12.5 mg PO PRN MDD 25 mg PRN (Reason: Migraine Headache) 0RF Label Comments: TAKE 1 TABLET BY MOUTH ONCE NEEDED FOR MIGRAINE. MAY REPEAT IN 2 HOURS IF UNRESOLVED. DO NOT EXCEED 25MG IN 24 HOURS lithium carbonate 300 mg capsule 300 mg PO TID 0RF esomeprazole magnesium [Nexium 24HR] 20 mg capsule,delayed release(DR/EC) 40 mg PO DAILY 0RF pregabalin 75 mg capsule 150 mg PO DAILY 0RF pregabalin 100 mg capsule 100 mg PO DAILY 0RF Ingrezza 40 mg capsule 80 mg PO DAILY 0RF ondansetron 4 mg tablet,disintegrating 4 mg PO Q6-8H PRN (Reason: nausea and vomiting) Qty: 7 0RF oxycodone 10 mg tablet 10 mg PO Q6HR PRN (Reason: Pain (Scale Score 7-10)) 0RF Latuda 60 mg tablet 60 mg PO DAILY 0RF oxycodone [OxyContin] 20 mg tablet,oral only,ext.rel.12 hr 20 mg PO BID 0RF Stand Alone Forms: Naloxone Standing Order CARMELA
[2021-09-03] MEDS: cloNIDine TTS 0.1 MG PATCH TOP (20:29)
[2021-09-03] MEDS: ONDANSETRON 4 MG ODT SL (20:30)
[2021-09-03] MEDS: BUPRENORPHINE/NALOXONE 8MG/2MG 1 TAB SL ×2 (20:30→21:52)
[2021-09-03 20:40] VITALS: BP 185/118; PULSE 86; O2SAT 96
[2021-09-03] MEDS: ONDANSETRON 4 MG ODT PREPACK 1 BOTTLE MISC (21:10)
[2021-09-03] MEDS: NALOXONE 4 MG NASAL SPRAY MISC (21:11)
[2021-09-03 21:39] VITALS: BP 193/116; PULSE 86; RESP 20; O2SAT 98
[2021-09-03 22:51] VITALS: BP 179/100; PULSE 80; RESP 18; O2SAT 98
== END 2021-09-03 23:16 | disposition home or self-care (01) ==
PROVIDERS: Emergency Provider Emergency Medicine
DX: F11.23 Opioid dependence with withdrawal (principal); Z88.5 Allergy status to narcotic agent; Z88.8 Allergy status to other drugs, medicaments and biological substances; Z87.891 Personal history of nicotine dependence
CPT/HCPCS: 99283; 99284; A9270

== ENCOUNTER 2022-06-09 21:23 | Emergency (ER) | payer OTHER, MEDICAID, SELFPAY ==
[2022-06-09 21:28] VITALS: BP 141/76; PULSE 49; RESP 16; TEMP 36.4; O2SAT 98
[2022-06-09 23:17] VITALS: PULSE 41; O2SAT 97
[2022-06-09 23:24] VITALS: BP 143/77; PULSE 45; O2SAT 97
[2022-06-09 23:30] VITALS: PULSE 41; RESP 14; O2SAT 95
[2022-06-09 23:31] VITALS: BP 144/74; PULSE 43; RESP 16; O2SAT 95
[2022-06-09 23:45] LABS: Add Manual Diff / Slide Review NO; Basophils Absolute Auto 0 /uL (0-100); Basophils Percent Auto 0.2 % (0-2); Eosinophils Absolute Auto 100 /uL (0-450); Eosinophils Percent Auto 0.8 % (2-4); Hematocrit 39.5 % (41-53); Hemoglobin 13.3 g/dL (13.5-17.5); Lymphocytes Absolute Auto 2800 /uL (1100-4500); Lymphocytes Percent Auto 30.9 % (25-40); Mean Corpuscular HGB Conc 33.6 % (30-36); Mean Corpuscular Hemoglobin 28.3 PG (26-34); Mean Corpuscular Volume 84.4 fL (80-100); Monocytes Absolute Auto 600 /uL (0-900); Neutrophils Absolute Auto 5700 /uL (1500-7000); Neutrophils Percent Auto 62.1 % (50-75); Platelet Count 315 X10^3/uL (150-400); Red Blood Cell Count 4.68 X10^6/uL (4.5-5.9); Red Cell Distribution Width 14.4 % (11.6-14.8); White Blood Cell Count 9.2 X10^3/uL (4.5-11.0)
[2022-06-09 23:53] LABS: Lactate (Lactic Acid) 1.5 mmol/L (0.7-2.1)
[2022-06-10] VITALS: PULSE 45; RESP 15; O2SAT 96
[2022-06-10 00:02] LABS: Acetaminophen 18 ug/mL (10-30); Alanine Aminotransferase 23 IU/L (<50); Albumin 4.1 g/dL (3.5-5.0); Albumin Globulin Ratio 1.2 (1.0-2.8); Alkaline Phosphatase 80 U/L (38-126); Aspartate Aminotransferase 18 IU/L (17-59); BUN Creatinine Ratio 16.8 (6-22); Bilirubin Total 0.5 mg/dL (0.2-1.3); Blood Urea Nitrogen 18 mg/dL (9-20); Calcium 9.2 mg/dL (8.4-10.2); Carbon Dioxide 23 mmol/L (22-32); Chloride 104 mmol/L (98-107); Estimated Glomerular Filt Rate > 60 mL/min (>60); Ethanol (ETOH) < 10 mg/dL; Globulin 3.5 g/dL (1.7-4.1); Glucose 141 mg/dL (70-100); HEMOLYSIS < 15 (0-50); Potassium 3.8 mmol/L (3.4-5.1); Salicylate < 1.0 mg/dL (<20); Sodium 141 mmol/L (137-145); Total Protein 7.6 g/dL (6.3-8.2)
[2022-06-10 00:06] VITALS: BP 146/71; PULSE 42; RESP 17; O2SAT 96
--- NOTE | 2022-06-10 00:11 | ED_ITS ---
HPI - Recheck/Abnormal Lab/Rx General Chief Complaint: Recheck/Abnormal Lab/Rx Stated Complaint: states withdrawls from pain meds Time Seen by Provider: 06/09/22 22:43 Source: patient Mode of arrival: Ambulatory History of Present Illness HPI narrative: Patient is a 36-year-old male history of chronic pain on long-term opiates. He has gone off of them before taking Suboxone. States that he ran out of his oxycodone today his withdrawal symptoms that he gets sharp stabbing pain down both of his arms. He will occasionally get diarrhea as well. This has happened to him previously he years here in September for the same where he got 2 doses of Suboxone. His provider is is changing his medications. He would like to get back on the Suboxone he does not think it will be a problem for her to write a prescription tomorrow but he needs a dose tonight to get him through. He did take 30 mL of NyQuil prior to arrival. He has no thoughts of harming self or anyone else. He is noted to be slightly bradycardic no dizziness or lighthea dedness. He denies taking any other medicine. No alcohol use. No other drugs. Related Data Home Medications Medication Instructions Recorded Confirmed cholecalciferol (vitamin D3) 1,250 QWEEK ##0 03/27/16 06/02/21 mcg (50,000 unit) capsule magnesium 200 mg tablet Q DAY ##0 03/27/16 06/02/21 naproxen 250 mg tablet BID ##0 03/27/16 06/02/21 promethazine 25 mg tablet 25 mg PO QID nausea ##0 03/27/16 06/02/21 almotriptan malate 12.5 mg tablet 12.5 mg PO PRN PRN Migraine 07/12/19 06/02/21 Headache buspirone 5 mg tablet 5 mg PO TID PRN Anxiety 07/12/19 06/02/21 esomeprazole magnesium 20 mg 40 mg PO DAILY 07/12/19 06/02/21 capsule,delayed release (Nexium 24HR) lithium carbonate 300 mg capsule 300 mg PO TID 07/12/19 06/02/21 pregabalin 100 mg capsule 100 mg PO DAILY 07/12/19 06/02/21 pregabalin 75 mg capsule 150 mg PO DAILY 07/12/19 06/02/21 valbenazine 40 mg capsule 80 mg PO DAILY 07/12/19 06/02/21 (Ingrezza) lurasidone 60 mg tablet (Latuda) 60 mg PO DAILY 09/03/21 09/03/21 oxycodone 10 mg tablet 10 mg PO Q6HR PRN Pain (Scale 09/03/21 09/03/21 Score 7-10) oxycodone 20 mg tablet,crush 20 mg PO BID 09/03/21 09/03/21 resistant,extended release 12 hr (OxyContin) Previous Rx's Medication Instructions Recorded ondansetron 4 mg disintegrating 4 mg PO Q6-8H PRN nausea and 07/12/19 tablet vomiting #7 tabs clonidine HCl 0.1 mg tablet 0.1 mg PO TID PRN alcohol 09/03/21 withdrawal #20 tabs Allergies Allergy/AdvReac Type Severity Reaction Status Date / Time cyclobenzaprine Allergy Severe Gastrointestinal Verified 09/03/21 19:20 Upset diphenhydramine Allergy Severe Agitated Verified 09/03/21 19:20 ketorolac [From Toradol] Allergy Severe Agitated Verified 09/03/21 19:20 Penicillins Allergy Severe Anaphylaxis Verified 09/03/21 19:20 prochlorperazine Allergy Severe Agitated Verified 09/03/21 19:20 [From Compazine] Sulfa (Sulfonamide Allergy Severe Nausea Verified 09/03/21 19:20 Antibiotics) trimethoprim Allergy Severe Anaphylaxis Verified 09/03/21 19:20 topiramate Allergy Intermediate Seizure Verified 09/03/21 19:20 alcohol [ALCOHOL] Allergy Mild rash/itchy/ Verified 09/03/21 19:20 hot/SOB carbamazepine Allergy Unknown Verified 09/03/21 19:20 Corticosteroids Allergy Unknown Verified 09/03/21 19:20 (Glucocorticoids) gabapentin Allergy Unknown Verified 09/03/21 19:20 dexamethasone Allergy Verified 09/03/21 19:20 morphine AdvReac Severe Nausea Verified 09/03/21 19:20 sumatriptan [From Imitrex] AdvReac Severe Hypertensio Verified 09/03/21 19:20 n acetaminophen AdvReac Intermediate Nausea Verified 09/03/21 19:20 fentanyl AdvReac Intermediate Gastrointestinal Verified 09/03/21 19:20 Upset baclofen AdvReac Shakiness Verified 09/03/21 19:20 metaxalone AdvReac Agitated Verified 09/03/21 19:20 methocarbamol AdvReac Headache Verified 09/03/21 19:20 steroids Allergy Severe swelling Uncoded 06/02/21 07:20 THC Allergy Intermediate head Uncoded 06/02/21 07:20 spins, N/V Review of Systems Review of Systems Narrative: GENERAL: Denies chills, fatigue, malaise, fever, sweats, travel HEENT: Denies sinus pain, ear pain, sore throat, difficulty swallowing, neck pain RESPIRATORY: Denies dyspnea, cough, wheezing, hemoptysis, sputum. CARDIOVASCULAR: Denies chest pain, palpitations, orthopnea, edema GASTROINTESTINAL: Denies nausea, vomiting, abdominal pain, diarrhea, constipation, melena. : Denies dysuria, frequency, incontinence, hematuria, urinary retention, flank pain. MUSCULOSKELETAL: Denies weakness, joint pain, or bony pain SKIN: No rash, no erythema, no pruritus NEUROLOGIC: D see HPI PSYCHIATRIC: No concerning psychosocial issues. 12 point review of systems is negative except for those stated above and HPI Patient History Medical History (Updated 06/10/22 @ 02:30 by Araceli Patel DO) Chronic pain syndrome Chronic pain syndrome (03/27/16) Former smoker (03/27/16) History of lumbar fusion (03/27/16) Low back pain Lumbar back pain with radiculopathy affecting left lower extremity (03/27/16) Migraine Morbid obesity (03/27/16) Morbid obesity with BMI of 40.0-44.9, adult Tobacco abuse Tobacco abuse counseling Surgical History History of third molar tooth extraction History of tonsillectomy Status post discectomy Status post knee surgery Social History Smoking Status: Former smoker Smoking Status: Former smoker alcohol intake frequency: other Substance Use Type: marijuana Exam Initial Vital Signs Initial Vital Signs: Vital Signs Temperature 97.6 F 06/09/22 21:28 Pulse Rate 49 L 06/09/22 21:28 Respiratory Rate 16 06/09/22 21:28 Blood Pressure 141/76 H 06/09/22 21:28 Pulse Oximetry 98 06/09/22 21:28 Oxygen Delivery Method 06/09/22 21:28 GENERAL: Alert pleasant 36-year-old male and in no acute distress. HEENT: Head atraumatic,EOMI, pupils reactive, face symmetric, moist mucous membranes CARDIOVASCULAR: Bradycardic no murmurs RESPIRATORY: Breath sounds equal bilaterally, no wheezes rales or rhonchi. ABDOMEN: Soft, nontender. Normoactive bowel sounds all 4 quadrants. No guarding or rebound. EXTREMITIES: Normal range of motion, no clubbing or edema. Neurovascularly intact NEUROLOGICAL: Alert and oriented x4.Normal gait and speech. SKIN: Warm, dry, no laceration, no petechiae, no rashes or lesions. Course Orders Ordered: ED Orders 06/09/22 23:23 Acetaminophen Stat Complete Blood Count AUTO DIFF Stat Comprehensive Metabolic Panel Stat Ethanol (ETOH) Stat Lactate (Lactic Acid) Stat Salicylate Stat Discontinued Medications Buprenorphine/Naloxone (Buprenorphine/Naloxone 8mg/2mg 1 Tab) 1 tab SL DAILY MICHAEL Buprenorphine/Naloxone (Buprenorphine/Naloxone 8mg/2mg 1 Tab) 1 tab SL NOW ONE Stop: 06/10/22 00:58 Last Admin: 06/10/22 01:00 Dose: 1 tab Documented By: PAULINA Buprenorphine/Naloxone (Buprenorphine/Naloxone 8mg/2mg 1 Tab) 1 tab SL NOW ONE Stop: 06/10/22 01:41 Last Admin: 06/10/22 01:51 Dose: 1 tab Documented By: RL Lorazepam (Lorazepam 0.5 Mg Tablet) 1 mg PO NOW ONE Stop: 06/09/22 22:44 Last Admin: 06/09/22 23:20 Dose: Not Given Documented By: SB Vital Signs Vital signs: Vital Signs - 8 hr 06/09/22 23:17 06/09/22 23:24 06/09/22 23:24 Pulse Rate 41 L 45 L Respiratory Rate Blood Pressure 143/77 H Pulse Oximetry 97 97 Oxygen Delivery Method 06/09/22 23:30 06/09/22 23:31 06/09/22 23:31 Pulse Rate 41 L 43 L Respiratory Rate 14 16 Blood Pressure 144/74 H Pulse Oximetry 95 95 Oxygen Delivery Method 06/10/22 00:00 06/10/22 00:06 06/10/22 00:06 Pulse Rate 45 L 42 L Respiratory Rate 15 17 Blood Pressure 146/71 H Pulse Oximetry 96 96 Oxygen Delivery Method 06/10/22 00:30 06/10/22 00:31 06/10/22 00:31 Pulse Rate 59 L 53 L Respiratory Rate 18 14 Blood Pressure 132/62 Pulse Oximetry 96 98 Oxygen Delivery Method 06/10/22 02:37 Pulse Rate 45 L Respiratory Rate 16 Blood Pressure 125/63 Pulse Oximetry 97 Oxygen Delivery Method Room Air MDM - Recheck/Abnormal Lab/Rx Lab Data Result diagrams: 06/09/22 23:23 06/09/22 23:23 Labs: Lab Results 06/09/22 06/09/22 06/09/22 Range/Units 23:23 23:23 23:23 WBC 9.2 (4.5-11.0) X10^3/uL RBC 4.68 (4.5-5.9) X10^6/uL Hgb 13.3 L (13.5-17.5) g/dL Hct 39.5 L (41-53) % MCV 84.4 (80-100) fL MCH 28.3 (26-34) PG MCHC 33.6 (30-36) % RDW 14.4 (11.6-14.8) % Plt Count 315 (150-400) X10^3/uL Neut % (Auto) 62.1 (50-75) % Lymph % (Auto) 30.9 (25-40) % Miner % (Auto) 6.0 (3-14) % Eos % (Auto) 0.8 L (2-4) % Baso % (Auto) 0.2 (0-2) % Neut # (Auto) 5700 (0381-6568) /uL Lymph # (Auto) 2800 (0939-9762) /uL Miner # (Auto) 600 (0-900) /uL Eos # (Auto) 100 (0-450) /uL Baso # (Auto) 0 (0-100) /uL Sodium 141 (137-145) mmol/L Potassium 3.8 (3.4-5.1) mmol/L Chloride 104 (98-107) mmol/L Carbon Dioxide 23 (22-32) mmol/L BUN 18 (9-20) mg/dL Creatinine 1.07 (0.66-1.25) mg/dL Estimated GFR > 60 (>60) mL/min BUN/Creatinine Ratio 16.8 (6-22) Glucose 141 H (70-100) mg/dL Lactate 1.5 (0.7-2.1) mmol/L Calcium 9.2 (8.4-10.2) mg/dL Total Bilirubin 0.5 (0.2-1.3) mg/dL AST 18 (17-59) IU/L ALT 23 (<50) IU/L Alkaline Phosphatase 80 (38-126) U/L Total Protein 7.6 (6.3-8.2) g/dL Albumin 4.1 (3.5-5.0) g/dL Globulin 3.5 (1.7-4.1) g/dL Albumin/Globulin Ratio 1.2 (1.0-2.8) Salicylates < 1.0 (<20) mg/dL Acetaminophen 18 (10-30) ug/mL Ethyl Alcohol < 10 ( - 10) mg/dL ECG Data Interpretation: Sinus bradycardia rate 41 KS interval 160 QRS [address] changes bradycardia new from previous EKG in 2019 MDM Narrative Medical decision making narrative: Patient had a near syncopal episode off he is was sleeping then briefly passed out for nursing staff. He was placed on the monitor. He is actually awake alert no focal deficits. Blood work is overall reassuring. He really would like some Suboxone. It appears that he got 2 doses previously in September. Initially held off giving him anything because he was so sleepy from the NyQuil but now is definitely more awake. He is given a dose of the Suboxone seems to be tolerating it well. Since that it is helping what would like another dose he is given a 2nd dose of Suboxone. He may remains awake alert and oriented. Does not seem to be sedated. At this time patient I both feel like he is comfortable and able to drive home. He has actually been in the emergency department for 5 hours. The NyQuil has clearly worn off. His heart rate has improved back into the 70s. He is awake alert is doing much better on Suboxone actually. Discharge Plan Departure Patient Disposition: Home Clinical Impression: Opiate withdrawal Instructions: DI for Prescription Opioid Use, Naloxone for Opiate Overdose - [facility] Activity Restrictions/Additional Instructions: *You have been diagnosed with opioid withdrawal *What to do: At this time please follow-up with your provider to get more Suboxone. *Continue to take medications as directed *Follow up with your primary care provider in 2-3 days or call [phone] *Return to ER if you should have persistent nausea vomiting diarrhea or any new, worsening or concerning symptoms Prescriptions: No Action promethazine 25 MG tablet 25 mg PO QID Qty: 0 cholecalciferol (vitamin D3) 50,000 UNIT capsule QWEEK Qty: 0 naproxen 250 MG tablet BID Qty: 0 magnesium 200 MG tablet Q DAY Qty: 0 buspirone 5 mg tablet 5 mg PO TID PRN (Reason: Anxiety) almotriptan malate 12.5 mg tablet 12.5 mg PO PRN MDD 25 mg PRN (Reason: Migraine Headache) Label Comments: TAKE 1 TABLET BY MOUTH ONCE NEEDED FOR MIGRAINE. MAY REPEAT IN 2 HOURS IF UNRESOLVED. DO NOT EXCEED 25MG IN 24 HOURS lithium carbonate 300 mg capsule 300 mg PO TID esomeprazole magnesium [Nexium 24HR] 20 mg capsule,delayed release(DR/EC) 40 mg PO DAILY pregabalin 75 mg capsule 150 mg PO DAILY pregabalin 100 mg capsule 100 mg PO DAILY Ingrezza 40 mg capsule 80 mg PO DAILY ondansetron 4 mg tablet,disintegrating 4 mg PO Q6-8H PRN (Reason: nausea and vomiting) Qty: 7 0RF oxycodone 10 mg tablet 10 mg PO Q6HR PRN (Reason: Pain (Scale Score 7-10)) Latuda 60 mg tablet 60 mg PO DAILY oxycodone [OxyContin] 20 mg tablet,oral only,ext.rel.12 hr 20 mg PO BID clonidine HCl 0.1 mg tablet 0.1 mg PO TID PRN (Reason: alcohol withdrawal) Qty: 20 0RF Referrals: Akosua Teran DO [Primary Care Provider] - Visit Report Forms: Patient Portal/API
[2022-06-10 00:30] VITALS: PULSE 59; RESP 18; O2SAT 96
[2022-06-10 00:31] VITALS: BP 132/62; PULSE 53; RESP 14; O2SAT 98
[2022-06-10] MEDS: BUPRENORPHINE/NALOXONE 8MG/2MG 1 TAB SL ×2 (01:00→01:51)
[2022-06-10 02:37] VITALS: BP 125/63; PULSE 45; RESP 16; O2SAT 97
== END 2022-06-10 02:41 | disposition home or self-care (01) ==
PROVIDERS: Emergency Provider Emergency Medicine; PCP Family Medicine
DX: F11.93 Opioid use, unspecified with withdrawal (principal)
CPT/HCPCS: 36415; 80053; 80320; 80329; 83605; 85025; 93005; 93010; 99284; G0480

== ENCOUNTER 2022-11-27 19:39 | Emergency (ER) | payer OTHER, MEDICAID, SELFPAY | END 2022-11-27 20:19 | disposition left against medical advice (07) | PROVIDERS: Emergency Provider Emergency Medicine; PCP Family Medicine | CPT/HCPCS: 99281 ==